=== PATIENT | female | born 2005 ===

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

== ENCOUNTER → 2025-03-01 | Outpatient (CLI) | payer BC | LOC: M SOG 06:52 | PROVIDERS: ATTEND Physician Assistant | DX: S52.572D Other intraarticular fracture of lower end of left radius, subsequent encounter for closed fracture with routine healing (principal); M25.632 Stiffness of left wrist, not elsewhere classified ==